=== PATIENT | male | born 1995 | race Caucasian/White ===

== ENCOUNTER 2020-03-15 17:36 | Emergency (ER) | payer MEDICAID ==
[~2020-03-15] VITALS: Ht 180.3 cm; Wt 60.0 kg
--- NOTE | 2020-03-15 18:15 | NUR ---
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
--- NOTE | 2020-03-15 18:42 | NUR ---
Pt states tingling/cramping in left hand, additional complaint of N/V starting this am. Parent at bedside. VSWNL.
[2020-03-15 19:01] LABS: BASOPHILS # (AUTO) 0.01 x10^3/uL (0-0.1); BASOPHILS % (AUTO) 0 % (0-1); EOSINOPHILS # (AUTO) 0.04 x10^3/uL (0-0.4); EOSINOPHILS % (AUTO) 0 % (1-7); LYMPHOCYTES % (AUTO) 7 % (22-44); MD NO; MEAN CORPUSCULAR HEMOGLOBIN 29.6 pg (27.5-34.5); MEAN CORPUSCULAR HGB CONC 33.3 g/dL (33.2-36.2); MEAN PLATELET VOLUME 8.9 fL (7.4-10.4); MONOCYTES # (AUTO) 0.47 x10^3/uL (0.2-0.8); MONOCYTES % (AUTO) 4 % (2-9); NEUTROPHILS # (AUTO) 9.74 x10^3/uL (1.8-6.8); NEUTROPHILS % (AUTO) 88 % (42-75); PLATELET COUNT 263 x10^3/uL (130-400); RED BLOOD COUNT 5.62 x10^6/uL (4.38-5.82); RED CELL DISTRIBUTION WIDTH 13.3 % (9.4-14.8)
[2020-03-15 19:11] LABS: ALBUMIN 4.9 g/dL (3.4-5.0); ANION GAP 8 mmol/L (5-15); CHLORIDE 107 mmol/L (98-107)
--- NOTE | 2020-03-15 19:56 | NUR ---
Pt states feeling better, updated on POC
[2020-03-15 20:45] VITALS: BP 119/81
== END 2020-03-15 21:09 | disposition home or self-care (01) ==
LOC: ED 19:00
DX: R42 Dizziness and giddiness (principal); R11.0 Nausea; R20.2 Paresthesia of skin; I44.5 Left posterior fascicular block; F17.200 Nicotine dependence, unspecified, uncomplicated
CPT/HCPCS: 36415; 80048; 82040; 85025; 93005; 99284; Q0177